=== PATIENT | female | born 1940 | race Caucasian/White ===

== ENCOUNTER → 2016-10-26 | Outpatient (CLI) | payer OTHER ==
[~2016-10-26] MED LIST: AUGMENTIN875 MG PO; CALCIUM1 TAB.CHEW; FISH OIL300 MG; IBUPROFEN600 MG PO; IBUPROFEN800 MG PO; PLAVIX; PREVACID; TRAMADOL HCL50 M2 PO
--- NOTE | ~2016-10-26 | BD1 ---
[facility] A Service of [facility] RADIOLOGY TEXT RESULTS PATIENT: MARISOL COLEMAN LOCATION: [facility] : 44 UNIT #: [id number] AGE: [address]: Facundo Finley MD SEX: F ORDER DR: [id number] [facility] [address] [facility] [place], [place] [address] [id number] O MR#: [id number] Acc #: [id number] NAME: MARISOL COLEMAN : 1940 SEX: F STUDY DATE/TIME: 10/26/2016 12:54 UNIT: [facility] ROOM: STUDY DESCRIPTION: BD Dexa Bone Dens 1+ Site Attending Physician: Facundo Finley M.D. Referring Physician: Facundo Finley M.D. Ordering Physician: Facundo Finley M.D. Primary Care Physician: Facundo Finley M.D. MEDICAL IMAGING REPORT This report is preliminary unless electronic signature is present EXAM DXA scan 10/26/2016 HISTORY Status post menopause with no hormone replacement therapy. Osteopenia. Hysterectomy at age 73. Arthritis. Family history of osteoporosis in mother. FINDINGS Bone mineral density in the lumbar spine from L1-L4 was 0.65 g/cm2 which is 3.6 standard deviations below the mean when compared to the young adult reference population which is characteristic of osteoporosis. This is 1.3 standard deviations below the mean when compared to the age-matched population. Compared with 03/08/2014, there has been an increase in bone mineral density in the lumbar spine of 0.4%. Bone mineral density in the left femoral neck was 0.586 g/cm2 which is 2.4 standard deviations below the mean when compared to the young adult reference population which is characteristic of osteopenia. This is 0.3 standard deviations below the mean when compared to the age-matched population. Compared with 03/08/2014, there has been an increase in bone mineral density in the left hip of 0.3%. IMPRESSION Bone mineral density in the lumbar spine characteristic of osteoporosis and within the left hip characteristic of osteopenia. Compared with 03/08/2014, there has been an increase in bone mineral density in the lumbar spine and the left hip. Dictated by... Nahid Del Cid M.D. [facility] A Service of [facility] RADIOLOGY TEXT RESULTS PATIENT: MARISOL COLEMAN LOCATION: [facility] : 44 UNIT #: [id number] AGE: [address]: Facundo Finley MD SEX: F ORDER DR: THIS IS AN ELECTRONICALLY VERIFIED REPORT Nahid Del Cid M.D. at 10/28/2016 8:16 AM ALESHIA/soha TD: 10/26/2016 15:55 JOB #: [id number] MEDICAL IMAGING REPORT Page 1 of 1 COPY
== END | disposition home or self-care (01) ==
LOC: CWCC 12:31
DX: M81.0 Age-related osteoporosis without current pathological fracture (principal); M85.88 Other specified disorders of bone density and structure, other site
CPT/HCPCS: 77080